=== PATIENT | male | born 1980 | race Caucasian/White ===

== ENCOUNTER 2024-05-21 13:56 | Outpatient (AMB) | payer OTHER, SELFPAY ==
--- NOTE | 2024-05-21 14:11 | AM.OFFWIN_ITS ---
Intake Vital Signs 05/21/24 14:14 Height 6 ft 1 in Weight 233 lb 4 oz BMI 30.8 BP 130/80 Blood Pressure Location Rt brachial Position Sitting Respiration 16 Pulse 72 Pulse Source Pulse Oximeter Pulse Oximetry (%) 96 Oxygen Delivery Method Room Air Intake Visit Reasons: est/back pain lower Intake Note: patient strain back by bending over pt states this has happened before Allergies ibuprofen Allergy (Severe, Verified 05/21/24 14:13) Eye Swelling HPI HPI Comments History of Present Illness Details This is a 44 year old male with no significant pmhx presenting to the walk-in with back pain. The patient reached down to lift something last Tuesday and felt a twinge in his lower back. It worsened since then. Pain is aching and spasming. Pain is moderate. Patient tried Tylenol 650mg which is ineffective. He did not try NSAIDs because he is allergic to Ibuprofen. Pain does not radiate. It is on both sides of his lower spine. Wakes up due to pain at night. He feels most comfortable when he stands, but then he gets muscle spasms. He tried heat which did not help. Ice provides modest relief. He is using a back brace. No history of back surgeries. This happened last year and 3-4 years ago. He reports steroids and muscle relaxers worked well for him. ROS: Constitutional: No fevers or chills Neurologic: No weakness, ataxia, numbness or tingling in the extremities. No loss of bowel or bladder control. No footdrop. Musculoskeletal: see HPI Physical exam: Constitutional: Alert, in no distress. Respiratory: Clear to auscultation. Cardiovascular: S1 S2 regular. No murmurs. Musculoskeletal: No midline spinal tenderness. Bilateral lumbar paraspinal muscles tender to palpation. Pain with flexion and extension. Gait mildly antalgic and no footdrop. Negative straight leg raises bilaterally. Lower extremity strength 5/5 bilaterally. Symmetric patellar reflexes. Extremities: Warm and well perfused. No clubbing, cyanosis or edema. 3+ peripheral pulses bilaterally. Psychiatric: Normal mood and affect [facility], [facility] Medical History (Updated 05/21/24 @ 15:10 by MIKE Mosqueda) Low back strain Physical Exam Vital Signs: Last Vital Signs Pulse 72 05/21/24 14:14 Resp 16 05/21/24 14:14 BP 130/80 05/21/24 14:14 Pulse Ox 96 05/21/24 14:14 Oxygen Delivery Method Room Air 05/21/24 14:14 BMI result Body Mass Index 30.8 Assessment & Plan Assessment & Plan (1) Low back strain: Code(s): S39.012A - Strain of muscle, fascia and tendon of lower back, initial encounter Plan: Patient instructed to avoid strenuous activity and heavy lifting for at least the next 2 weeks. Patient declined note for his job. Sent taper of prednisone. Side effects and administration reviewed. Prescribed cyclobenzaprine 10 mg every 8 hours as needed for 10 days for muscle spasm. Cautioned about sedation and dizziness. Do not drive or operate heavy machinery or work on this medication. Refer to physical therapy. Warning signs warranting ER evaluation reviewed. Plan Patient scheduled a visit to establish care with Dr. Lay. Medications: New prednisone Take 3 tabs po qam x 2 days, then take 2 tabs po qam x 2 days, then take 1 tab po qam x 2 days, then take 1/2 tab po qam x 2 days 13 tabs 0RF cyclobenzaprine 10 mg PO Q8H 24 tabs 0RF 8 days Coding Level of Care Code New Pt Level 3 (92349) Diagnoses Low back strain S39.012A
[2024-05-21 14:14] VITALS: BP 130/80; PULSE 72; RESP 16; O2SAT 96; BMI 30.8
== END 2024-05-21 14:34 | disposition home or self-care (01) ==
PROVIDERS: Visit Provider Physician Assistant Medical
DX: S39.012A Strain of muscle, fascia and tendon of lower back, initial encounter (principal)

== ENCOUNTER 2024-06-15 15:28 | Outpatient (AMB) | payer OTHER, SELFPAY ==
--- NOTE | 2024-06-15 15:50 | A.OFFPC_ITS ---
Vital Signs 06/15/24 15:54 Height 5 ft 11.06 in Weight 229 lb 8 oz BMI 32.0 BP 116/82 Blood Pressure Location Rt brachial Position Sitting Pulse 69 Pulse Source Pulse Oximeter Pulse Oximetry (%) 96 Oxygen Delivery Method Room Air Intake Visit Reasons: est care/back issues Intake Note: New patient visit Allergies ibuprofen Allergy (Severe, Verified 06/15/24 15:51) Eye Swelling Tobacco use date assessed: 06/15/24 Dental Screening Dental Screen Date: 06/15/24 Did you have a dental visit in the last 12 months?: Yes Did you have a dental problem in the last 6 months where you did not have access to dental care?: No Was dental information given to patient?: Patient has dentist HPI HPI Comments History of Present Illness Details This is a 44 year old male with no significant pmhx presenting to [facility] He was recently seen at walk in clinic for low back pain The patient reached down to lift something last Tuesday and felt a twinge in his lower back. It worsened since then. Pain is aching and spasming. Pain is moderate. Patient tried Tylenol 650mg which is ineffective. He did not try NSAIDs because he is allergic to Ibuprofen. This happened last year and 3-4 years ago. He reports steroids and muscle relaxers worked well for him. Patient was placed on prednisone pulse and cyclobenzaprine as needed He was referred to PT but his symptoms have improved He has no other current complaints ROS CONSTITUTIONAL: Denies weight loss, fever and chills. HEENT: Denies changes in vision and hearing. RESPIRATORY: Denies SOB and cough. CV: Denies palpitations and CP GI: Denies abdominal pain, nausea, vomiting and diarrhea. : Denies dysuria and urinary frequency. MSK: Denies new myalgia and joint pain. SKIN: Denies rash and pruritus. NEUROLOGICAL: Denies headache PSYCHIATRIC: Denies recent changes in mood. PHYSICAL EXAM: GENERAL: Alert and oriented x 3. NAD EYES: EOMI. Anicteric. HENT: Moist mucous membranes. No scleral icterus. No cervical lymphadenopathy. LUNGS: Clear to auscultation bilaterally. CARDIOVASCULAR: Regular rate and rhythm. No murmur. No JVD. ABDOMEN: Soft, non-tender +bs EXTREMITIES: No edema. Non-tender. SKIN: No rashes or lesions. Warm. NEUROLOGIC: No focal neurological deficits. CN II-XII grossly intact PSYCHIATRIC: Cooperative. Appropriate mood and affect [facility] Medical History Low back strain Family History (Updated 06/15/24 @ 15:53 by Reba Cartagena CMA) Father Alcoholic Mother Cancer of breast Ovarian cancer Other Substance abuse Social History Housing: House Patient Tobacco Use Status: Never used Tobacco e-Cigarette/Vaping Use: Never Used Second Hand Smoke Exposure: No service: No Current occupational status: unemployed Cognitive needs: No Hearing needs: No Vision needs: No Questionnaire PHQ-9 Over the last 2 weeks, how often have you been bothered by any of the following problems? 1. Little interest or pleasure in doing things: not at all 2. Feeling down, depressed, or hopeless: not at all 3. Trouble falling or staying asleep, or sleeping too much: not at all 4. Feeling tired or having little energy: not at all 5. Poor appetite or overeating: not at all 6. Feeling bad about yourself - or that you are a failure or have let yourself or your family down: not at all 7. Trouble concentrating on things, such as reading the newspaper or watching television: not at all 8. Moving or speaking so slowly that other people could have noticed. Or the opposite - being so fidgety or restless that you have been moving around a lot more than usual: not at all 9. Thoughts that you would be better off or of hurting yourself in some way: not at all Total score: 0 Depression Screening Interpretation: Negative Depression Screening Done: Yes [id number] - PHQ-9 Billing: Yes Source: Developed by Drs. Saul Christianson, Agustina Salazar, Tex Vogel and colleagues, with an educational mamadou from [employer]. Thrive Questionnaire I am a: Patient What is your living situation today?: I have a steady place to live Within the past 12 months, did the food you bought not last and you didn't have the money to get more?: Never true Within the past 12 months, did you worry whether your food would run out before you got money to buy more?: Never true Do you have trouble paying for medicines?: No Do you have trouble getting transportation to medical appointments?: No Do you have trouble paying your heating and electricity bill?: No Do you have trouble taking care of your child, family member or friend?: No Do you have trouble with day-to-day activities such as bathing, preparing meals, shopping, managing finances, etc.?: No Are you currently unemployed and looking for a job?: I choose not to answer this question Are you interested in more education?: I choose not to answer this question Please select the resources that you would like help with: None Currently or been in a relationship where the following occur: No concerns reported THRIVE Score: 0 AUDIT C Alcohol Use Questionnaire (AUDIT-C) 1. How often do you have a drink containing alcohol?: 2-4 times a month 2. How many drinks containing alcohol do you have on a typical day when you are drinking?: 1 or 2 3. How often do you have six or more drinks on one occasion?: Less than monthly Total Score: 3 GÓMEZ-7 AMB Questionnaire GÓMEZ-7 Feeling nervous, anxious, or on edge: 0 = Not at all Not being able to stop or control worryin = Not at all Worrying too much about different things: 0 = Not at all Trouble relaxin = Not at all Being so restless that it is hard to sit still: 0 = Not at all Becoming easily annoyed or irritable: 0 = Not at all Feeling afraid as if something awful might happen: 0 = Not at all Total GÓMEZ-7 score (0-4 normal; 5-9 mild; 10-14 moderate; 15-21 severe): 0 Source: Developed by Drs. Saul Christianson, Agustina Salazar, Tex Vogel and colleagues, with an educational mamadou from [employer]. Physical exam (Primary Care) Vital Signs: Last Vital Signs Pulse 69 06/15/24 15:54 BP 116/82 06/15/24 15:54 Pulse Ox 96 06/15/24 15:54 Oxygen Delivery Method Room Air 06/15/24 15:54 BMI result Body Mass Index 32.0 Tobacco/Smoking Status: Tobacco use Status Tobacco use date assessed 06/15/24 06/15/24 15:58 Patient Tobacco Use Status Never used Tobacco 06/15/24 15:58 e-Cigarette/Vaping Use Never Used 06/15/24 15:58 PHQ-9: PHQ-9 Score PHQ-9: Total score 0 06/22/24 10:52 Depression Screening Interpretation: Negative Currently or been in a relationship where the following occur: No concerns reported Coding Level of Care Code Est Pt Level 4 (66241) Diagnoses Encounter to establish care Z76.89 Strain of lumbar region, sequela S39.012S Encounter type: sequela Assessment & Plan Assessment & Plan (1) Encounter to establish care: Code(s): Z76.89 - Persons encountering health services in other specified circumstances Category: Medical Plan: 44 yo to establish care. past medical, surgical, social and family history reviewed. Chart updated (2) Low back strain: Code(s): S39.012A - Strain of muscle, fascia and tendon of lower back, initial encounter Category: Medical Qualifiers: Encounter type: sequela Qualified Code(s): S39.012S - Strain of muscle, fascia and tendon of lower back, sequela Plan: happens intermittently. consider xray. improved current back symptoms Orders: Orders XR lumbar spine 2-3V 06/15/24 S39.012A - Strain of muscle, fascia and tendon of lower back, initial encounter, Z76.89 - Persons encountering health services in other specified circumstances
[2024-06-15 15:54] VITALS: BP 116/82; PULSE 69; O2SAT 96; BMI 32.0
== END 2024-06-15 16:07 | disposition home or self-care (01) ==
PROVIDERS: Visit Provider Internal Medicine
DX: Z76.89 Persons encountering health services in other specified circumstances (principal); S39.012S Strain of muscle, fascia and tendon of lower back, sequela

== ENCOUNTER → 2024-06-15 15:28 | Outpatient (BNVA) | payer OTHER, SELFPAY | PROVIDERS: Visit Provider Internal Medicine ==

== ENCOUNTER 2025-02-12 15:51 | Outpatient (AMB) | payer OTHER, SELFPAY ==
--- NOTE | 2025-02-12 15:58 | MHC.PC.OV ---
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 He continues to have flares in levels every few weeks. Prednisone and flexeril has worked well in the past. He has allergy to ibuprofen. Tylenol is not very effective Colon cancer screening is due-declines colonoscopy. Ok for cologuard. ROS CONSTITUTIONAL: Denies weight loss, fever and chills. HEENT: Denies changes in vision and hearing. RESPIRATORY: Denies SOB and cough. CV: Denies palpitations and CP GI: Denies abdominal pain, nausea, vomiting and diarrhea. : Denies dysuria and urinary frequency. MSK: Denies new myalgia and joint pain. SKIN: Denies rash and pruritus. NEUROLOGICAL: Denies headache PSYCHIATRIC: Denies recent changes in mood. PHYSICAL EXAM: GENERAL: Alert and oriented x 3. NAD EYES: EOMI. Anicteric. HENT: Moist mucous membranes. No scleral icterus. No cervical lymphadenopathy. LUNGS: Clear to auscultation bilaterally. CARDIOVASCULAR: Regular rate and rhythm. No murmur. No JVD. ABDOMEN: Soft, non-tender +bs : normal penis and testes EXTREMITIES: No edema. Non-tender. SKIN: No rashes or lesions. Warm. NEUROLOGIC: No focal neurological deficits. CN II-XII grossly intact PSYCHIATRIC: Cooperative. 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 1. Little interest or pleasure in doing things: not at all 2. Feeling down, depressed, or hopeless: not at all 3. Trouble falling or staying asleep, or sleeping too much: not at all 4. Feeling tired or having little energy: not at all 5. Poor appetite or overeating: not at all 6. Feeling bad about yourself - or that you are a failure or have let yourself or your family down: not at all 7. Trouble concentrating on things, such as reading the newspaper or watching television: not at all 8. Moving or speaking so slowly that other people could have noticed. Or the opposite - being so fidgety or restless that you have been moving around a lot more than usual: not at all 9. Thoughts that you would be better off or of hurting yourself in some way: not at all Total score: 0 Source: Developed by Drs. Saul Christianson, Agustina Salazar, Tex Vogel and colleagues, with an educational mamadou from [employer]. Thrive Questionnaire Date Thrive assessed: 02/09/25 I am a: Patient What is your living situation today?: I have a steady place to live Within the past 12 months, did the food you bought not last and you didn't have the money to get more?: Never true Within the past 12 months, did you worry whether your food would run out before you got money to buy more?: Never true Do you have trouble paying for medicines?: No Do you have trouble getting transportation to medical appointments?: No Do you have trouble paying your heating and electricity bill?: No Do you have trouble taking care of your child, family member or friend?: No Do you have trouble with day-to-day activities such as bathing, preparing meals, shopping, managing finances, etc.?: No Are you currently unemployed and looking for a job?: No Are you interested in more education?: No Please select the resources that you would like help with: None Currently or been in a relationship where the following occur: No concerns reported THRIVE Score: 0 AUDIT C Alcohol Use Questionnaire (AUDIT-C) 1. How often do you have a drink containing alcohol?: 2-3 times a week 2. How many drinks containing alcohol do you have on a typical day when you are drinking?: 1 or 2 3. How often do you have six or more drinks on one occasion?: Less than monthly Total Score: 4 GÓMEZ-7 AMB Questionnaire GÓMEZ-7 Feeling nervous, anxious, or on edge: 0 = Not at all Not being able to stop or control worryin = Not at all Worrying too much about different things: 0 = Not at all Trouble relaxin = Not at all Being so restless that it is hard to sit still: 0 = Not at all Becoming easily annoyed or irritable: 0 = Not at all Feeling afraid as if something awful might happen: 0 = Not at all Total GÓMEZ-7 score (0-4 normal; 5-9 mild; 10-14 moderate; 15-21 severe): 0 Source: Developed by Drs. Saul Christianson, Agustina Salazar, Tex Vogel and colleagues, with an educational mamadou from [employer]. Physical exam (Primary Care) Vital Signs: Last Vital Signs Temp 97.8 F 02/12/25 16:01 Pulse 61 02/12/25 16:01 Resp 14 02/12/25 16:01 BP 116/74 02/12/25 16:01 Pulse Ox 97 02/12/25 16:01 Oxygen Delivery Method Room Air 02/12/25 16:01 BMI result Body Mass Index 33.1 Tobacco/Smoking Status: Tobacco use Status Tobacco use date assessed 02/12/25 02/12/25 16:05 Patient Tobacco Use Status Never used Tobacco 02/12/25 16:05 e-Cigarette/Vaping Use Never Used 02/12/25 16:05 PHQ-9: PHQ-9 Score PHQ-9: Total score 0 02/12/25 16:11 Thrive Assessment: Date of Thrive Assessment Date Thrive assessed 02/09/25 02/12/25 16:05 Currently or been in a relationship where the following occur: No concerns reported Coding Level of Care Code Est Pt Prev Care 40-64y(73197) Diagnoses Physical exam Z00.00 Chronic bilateral low back pain without sciatica M54.50; G89.29 Chronicity: chronic Back pain laterality: bilateral Sciatica presence: without sciatica Assessment & Plan Assessment & Plan (1) Physical exam: Code(s): Z00.00 - Encounter for general adult medical examination without abnormal findings Category: Medical (2) Low back pain: Code(s): M54.50 - Low back pain, unspecified Category: Medical Qualifiers: Chronicity: chronic Back pain laterality: bilateral Sciatica presence: without sciatica Qualified Code(s): M54.50 - Low back pain, unspecified; G89.29 - Other chronic pain Plan 45 yo for physical exam Interval history reviewed Preventive measures for age discussed Increased baseline back pain with flares-he will perform xrays Labs ordered Cologuard ordered Orders: Orders Comprehensive Met. Panel 02/12/25 M54.50 - Low back pain, unspecified, Z00.00 - Encounter for general adult medical examination without abnormal findings, Z13.0 - Encounter for screening for diseases of the blood and blood-forming organs and certain disorders involving the immune mechanism, Z13.220 - Encounter for screening for lipoid disorders, Z13.228 - Encounter for screening for other metabolic disorders Lipid Panel 02/12/25 M54.50 - Low back pain, unspecified, Z00.00 - Encounter for general adult medical examination without abnormal findings, Z13.0 - Encounter for screening for diseases of the blood and blood-forming organs and certain disorders involving the immune mechanism, Z13.220 - Encounter for screening for lipoid disorders, Z13.228 - Encounter for screening for other metabolic disorders Complete Blood Count Auto Diff 02/12/25 M54.50 - Low back pain, unspecified, Z00.00 - Encounter for general adult medical examination without abnormal findings, Z13.0 - Encounter for screening for diseases of the blood and blood-forming organs and certain disorders involving the immune mechanism, Z13.220 - Encounter for screening for lipoid disorders, Z13.228 - Encounter for screening for other metabolic disorders Prostate Specific Antigen 07/01/25 M54.50 - Low back pain, unspecified, Z00.00 - Encounter for general adult medical examination without abnormal findings, Z13.0 - Encounter for screening for diseases of the blood and blood-forming organs and certain disorders involving the immune mechanism, Z13.220 - Encounter for screening for lipoid disorders, Z13.228 - Encounter for screening for other metabolic disorders Hemoglobin A1c 02/12/25 M54.50 - Low back pain, unspecified, Z00.00 - Encounter for general adult medical examination without abnormal findings, Z13.0 - Encounter for screening for diseases of the blood and blood-forming organs and certain disorders involving the immune mechanism, Z13.220 - Encounter for screening for lipoid disorders, Z13.228 - Encounter for screening for other metabolic disorders Referrals Cologuard Test Z12.11 - Encounter for screening for malignant neoplasm of colon, Z12.12 - Encounter for screening for malignant neoplasm of rectum Medications: New cyclobenzaprine 10 mg PO BEDTIME PRN 30 tabs 1RF muscle spasm lidocaine 5% leave on most painful area for up to 12 hrs 1 patch topical DAILY 30 ea 3RF
[2025-02-12 16:01] VITALS: BP 116/74; PULSE 61; RESP 14; TEMP 36.6; O2SAT 97; BMI 33.1
== END 2025-02-12 16:26 | disposition home or self-care (01) ==
LOC: HO.HMCFM 15:52
PROVIDERS: PCP Internal Medicine; Visit Provider Internal Medicine
DX: Z00.00 Encounter for general adult medical examination without abnormal findings (principal); M54.50 Low back pain, unspecified; G89.29 Other chronic pain